=== PATIENT | female | born 1965 | race Caucasian/White ===

== ENCOUNTER 2024-05-14 12:37 | Emergency (ER) | payer OTHER ==
[~2024-05-14] VITALS: Ht 170.2 cm; Wt 86.1 kg
[2024-05-14 12:43] VITALS: O2SAT 99
[2024-05-14 12:47] VITALS: TEMP 98; O2SAT 98
[2024-05-14 14:25] VITALS: BP 158/92; PULSE 102; RESP 18
[2024-05-14] MEDS: MORPHINE SULFATE 4 MG/ML INJ (FOR IV/IM USE) IM ONE (14:25)
[2024-05-14] MEDS ORDERED: LIDO700A15 TP (14:47)
[2024-05-14] MEDS ORDERED: NAPR-1176 MT (14:47)
[2024-05-14] MEDS ORDERED: CYCL5TAB MT (15:06)
== END 2024-05-14 15:17 | disposition home or self-care (01) ==
LOC: ER 12:51
DX: M54.50 Low back pain, unspecified (principal); G89.29 Other chronic pain; E11.9 Type 2 diabetes mellitus without complications; Z98.51 Tubal ligation status; Z88.2 Allergy status to sulfonamides
CPT/HCPCS: 99283; 81025; 96372; J2270